=== PATIENT | male | born 1945 | race Caucasian/White ===

== ENCOUNTER 2019-03-02 16:36 | Emergency (ER) | payer MEDICARE, BC ==
[2019-03-02] MEDS ORDERED: LIDOCAINE 2% VISCOUS SOLN 20 ML UDCUP PO ONE (17:53)
--- NOTE | 2019-03-02 17:55 | ER Document Report ---
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 Patient states that he is still being evaluated for his symptoms and is concerned about possible stricture. Patient states he swallowed a pill at 8:00 this morning and feels as though the pill may be stuck in his throat. Patient states that he has been able to drink 2 bottles of water today without difficulty. Patient has not attempted to eat any food because he is concerned about the pill being stuck in his throat. Patient denies any chest pain or difficulty breathing. Patient denies any vomiting. Patient able to manage oral secretions. I have greeted and performed a rapid initial assessment of this patient. A comprehensive ED assessment and evaluation of the patient, analysis of test results and completion of the medical decision making process will be conducted by additional ED providers. - Related Data Allergies/Adverse Reactions: codeine Allergy (Verified 03/02/19 17:47) Past Medical History - Social History Frequency of alcohol use: None Drug Abuse: None Physical Exam - General General appearance: Appears well, Alert In distress: None Notes: Patient able to manage oral secretions without emesis or spitting up Doctor's Discharge - Discharge Referrals: CONNIE MIDDLETON MD [Primary Care Provider] - Follow up as needed
--- NOTE | 2019-03-02 18:48 | ER Document Report ---
ED General - General Chief Complaint: Sore Throat Stated Complaint: EPIGASTRIC PAIN Time Seen by Provider: 03/02/19 17:47 Primary Care Provider: CONNIE MIDDLETON MD [NO LOCAL MD] - Follow up as needed Mode of Arrival: Ambulatory - [facility] Onset: Just prior to arrival Onset/Duration: Sudden Severity: Mild Pain Level: 0 Context: 73 year old male arrives with complaints of difficulty swallowing. Having dysphagia to solids since the first of the year and the feeling of food getting stuck in his throat. He has adjusted his diet to soft foods and is due for EGD and ? dialation 03/04. No chest pain and no sob and no nausea or vomiting. Was concerned he may have gotten a pill stuck in his lower throat he took earlier today. No difficulty swallowing liquid. Exacerbated by: Denies Relieved by: Denies - Related Data Allergies/Adverse Reactions: codeine Allergy (Verified 03/02/19 17:47) Past Medical History - General Information source: Patient - Social History Smoking Status: Unknown if Ever Smoked Frequency of alcohol use: None Drug Abuse: None Family History: Reviewed & Not Pertinent Patient has suicidal ideation: No Patient has homicidal ideation: No Review of Systems - Review of Systems Constitutional: No symptoms reported EENT: No symptoms reported Cardiovascular: No symptoms reported Respiratory: No symptoms reported Gastrointestinal: No symptoms reported Genitourinary: No symptoms reported Male Genitourinary: No symptoms reported Musculoskeletal: No symptoms reported Skin: No symptoms reported Hematologic/Lymphatic: No symptoms reported Neurological/Psychological: No symptoms reported Physical Exam - Vital signs Vitals: Temp Pulse Resp BP Pulse Ox 98.1 F 71 16 133/69 H 98 03/02/19 18:58 03/02/19 18:58 03/02/19 18:58 03/02/19 18:58 03/02/19 18:58 Interpretation: Normal - General General appearance: Appears well, Alert - HEENT Head: Normocephalic, Atraumatic Eyes: Normal Pupils: PERRL - Respiratory Respiratory status: No respiratory distress Chest status: Nontender Breath sounds: Normal Chest palpation: Normal - Cardiovascular Rhythm: Regular Heart sounds: Normal auscultation Murmur: No - Abdominal Inspection: Normal Distension: No distension Bowel sounds: Normal Tenderness: Nontender Organomegaly: No organomegaly - Back Back: Normal, Nontender - Extremities General upper extremity: Normal inspection, Nontender, Normal color, Normal ROM, Normal temperature General lower extremity: Normal inspection, Nontender, Normal color, Normal ROM, Normal temperature, Normal weight bearing. No: Ella's sign - Neurological Neuro grossly intact: Yes Cognition: Normal Orientation: AAOx4 [place] Coma Scale Eye Opening: Spontaneous [place] Coma Scale Verbal: Oriented [place] Coma Scale Motor: Obeys Commands [place] Coma Scale Total: 15 Speech: Normal Motor strength normal: LUE, RUE, LLE, RLE Sensory: Normal - Psychological Associated symptoms: Normal affect, Normal mood - Skin Skin Temperature: Warm Skin Moisture: Dry Skin Color: Normal Course - Re-evaluation Re-evalutation: 03/02/19 18:54 MDM 73 year old male with dysphagia and follow up in 2 days. Lidocaine po here and symptoms free afterwards. Discussed keeping follow up and he expressed understanding. - Vital Signs Vital signs: Temp Pulse Resp BP Pulse Ox 98.1 F 71 16 133/69 H 98 03/02/19 18:58 03/02/19 18:58 03/02/19 18:58 03/02/19 18:58 03/02/19 18:58 Discharge - Discharge Clinical Impression: Dysphagia Qualifiers: Dysphagia type: unspecified Qualified Code(s): R13.10 - Dysphagia, unspecified Condition: Good Disposition: HOME, SELF-CARE Instructions: Acid-Suppressing Medication ([facility]), Dysphagia ([facility]), Sucralfate ([facility]) Additional Instructions: Keep your follow up with your GI doctor on . Please return here for any problems or any concerns. Prescriptions: Sucralfate [Carafate Susp 1 Gm/10 Ml Udcup] 1 gm PO QID 10 Days #1 bottle Referrals: CONNIE MIDDLETON MD [NO LOCAL MD] - Follow up as needed
[2019-03-02 19:00] VITALS: BP 133/69
== END 2019-03-02 18:58 | disposition home or self-care (01) ==
LOC: ER 16:36
DX: R13.10 Dysphagia, unspecified (principal); Z88.6 Allergy status to analgesic agent; Z88.5 Allergy status to narcotic agent
CPT/HCPCS: 99282; J3490